=== PATIENT | female | born 1995 ===

== ENCOUNTER 2022-09-11 20:10 | Inpatient (IN) | payer OTHER ==
[2022-09-11] MEDS: DEXTROSE 5%-LACTATED RINGERS 1,000 ML IV SCH (21:00)
[2022-09-11] MEDS ORDERED: DINOPROSTONE 10 MG VAGINAL SUPPOSITORY VG ONE (21:00)
[2022-09-11 21:36] LABS: BASO % 0.4 % (0-2.0); HEMATOCRIT 33.7 % (32.4-45.2); HEMOGLOBIN 11.1 GM/dL (10.7-15.3); LYMPH % 32.3 % (8-40); MCH 28.6 pg (25.7-33.7); MCHC 33.1 g/dl (32.0-36.0); MEAN CELL VOLUME 86.4 fl (80-96); MEAN PLT VOLUME 8.3 fl (7.5-11.1); MONO % 8.4 % (3.8-10.2); NEUT % 57.9 % (42.8-82.8); PLATELET COUNT 255 10^3/uL (134-434); RDW 18.4 % (11.6-15.6); WHITE BLOOD COUNT 6.8 K/mm3 (4.0-10.0)
[2022-09-11 21:44] LABS: INR 0.99 (0.83-1.09); PROTHROMBIN TIME (PATIENT) 11.4 SEC (9.7-13.0)
[2022-09-11 21:47] LABS: ACTIVATED PTT 27.7 SECONDS (25.2-36.5)
[2022-09-11 21:56] LABS: CALCIUM 8.7 mg/dL (8.5-10.1)
[2022-09-11 21:57] LABS: ALBUMIN 2.7 g/dl (3.4-5.0)
[2022-09-11 21:59] LABS: CREATININE 0.7 mg/dL (0.55-1.3)
[2022-09-11 22:01] LABS: TOT PROT 6.2 g/dl (6.4-8.2)
[2022-09-11 22:02] LABS: BILIRUBIN,TOTAL 0.3 mg/dL (0.2-1)
[2022-09-11 22:22] LABS: SYPHILIS W/ RPR CONF NON-REACTIVE (NONREACTIVE)
[2022-09-11 22:51] LABS: HIV INTERPRETATION NEGATIVE (NEGATIVE)
[2022-09-11 23:05] VITALS: BMI 26.8
[2022-09-12] MEDS ORDERED: PROMETHAZINE HCL 25 MG/1 ML VIAL IVPUSH ONE (01:00)
[2022-09-12] MEDS ORDERED: BUTORPHANOL TARTRATE 2 MG/ML VIAL IVPB ONE (01:00)
[2022-09-12] MEDS: DEXTROSE 5%-LACTATED RINGERS 1,000 ML IV SCH ×2 (01:00→08:15)
[2022-09-12] MEDS: MUPIROCIN 2% TOPICAL OINTMENT 22 GM TUBE TP SCH ×2 (06:00→16:00)
[2022-09-12] MEDS ORDERED: OXYTOCIN 30 UNITS in 0.9% NS 30 UNIT/500 ML INFUS.BAG IVPB SCH (07:30)
[2022-09-12] MEDS ORDERED: BUTORPHANOL TARTRATE 2 MG/ML VIAL ONE (09:00)
[2022-09-12] MEDS ORDERED: PROMETHAZINE HCL 25 MG/1 ML VIAL ONE (09:00)
[2022-09-12] MEDS ORDERED: FENTANYL/BUPIVACAINE/NS/PF - PCEA - 50 ML DISP.SYRIN EP ONE ×2 (13:59→18:21)
[2022-09-12] MEDS: FENTANYL/BUPIVACAINE/NS/PF - PCEA - 50 ML DISP.SYRIN EP SCH (14:15)
[2022-09-12] MEDS ORDERED: ELECTROLYTE-148 SOLN 1,000 ML IV SCH (15:00)
[2022-09-12] MEDS ORDERED: OXYTOCIN 30 UNITS in 0.9% NS 30 UNIT/500 ML INFUS.BAG IVPB ONE (15:31)
[2022-09-12] MEDS ORDERED: NALOXONE HCL 0.4 MG/ML VIAL IVPUSH PRN (17:22)
[2022-09-12] MEDS ORDERED: OXYTOCIN 20 UNITS in 0.9% NS 20 UNIT/1,000 ML INFUS.BAG IV ONE (21:56)
[2022-09-12] MEDS ORDERED: BISACODYL 10 MG SUPP.RECT RC PRN (23:12)
[2022-09-12] MEDS ORDERED: oxyCODONE HCL 5 MG TABLET PO PRN (23:12)
[2022-09-12] MEDS ORDERED: BENZOCAINE 20% 57 GM BOTTLE TP PRN (23:12)
[2022-09-12] MEDS ORDERED: BENZOCAINE 28 GM HEMORRHOIDAL OINTMENT TP PRN (23:12)
[2022-09-12] MEDS ORDERED: METHYLERGONOVINE MALEATE 0.2 MG/1 ML AMP IM PRN (23:12)
[2022-09-12] MEDS ORDERED: IBUPROFEN 600 MG TABLET (FP) PO PRN (23:12)
[2022-09-12] MEDS ORDERED: WITCH HAZEL 50% (TUCKS) 40 PAD/JAR PAD TP PRN (23:12)
[2022-09-12] MEDS ORDERED: OXYTOCIN 20 UNITS in 0.9% NS 20 UNIT/1,000 ML INFUS.BAG IV SCH (23:15)
[2022-09-13] MEDS: MUPIROCIN 2% TOPICAL OINTMENT 22 GM TUBE TP SCH ×4 (01:30→22:26)
[2022-09-13] MEDS: ACETAMINOPHEN 325 MG TABLET (FP) PO PRN ×2 (01:30→04:38)
[2022-09-13 08:56] LABS: BASO % 0.3 % (0-2.0); EOS % 0.6 % (0-4.5); HEMATOCRIT 28.4 % (32.4-45.2); HEMOGLOBIN 9.1 GM/dL (10.7-15.3); LYMPH % 23.5 % (8-40); MCH 27.7 pg (25.7-33.7); MCHC 32.2 g/dl (32.0-36.0); MEAN CELL VOLUME 85.9 fl (80-96); MEAN PLT VOLUME 8.1 fl (7.5-11.1); MONO % 8.6 % (3.8-10.2); PLATELET COUNT 229 10^3/uL (134-434); RDW 18.4 % (11.6-15.6); WHITE BLOOD COUNT 8.4 K/mm3 (4.0-10.0)
[2022-09-13] MEDS ORDERED: DIPHTH,PERTUSS(ACELL),TET 0.5 ML DISP.SYRIN IM ONE (10:00)
[2022-09-13] MEDS: PRENATAL VITAMINS W/ FOLIC ACID TABLET (FP) PO SCH (10:13)
[2022-09-13] MEDS ORDERED: FLU VACC QS2022-23(6MOS UP)/PF 60 MCG/0.5 ML SYRINGE IM ONE (14:00)
[2022-09-13] MEDS ORDERED: SENNOSIDES/DOCUSATE COMBO (SENNA PLUS) TABLET (UD) PO PRN (22:00)
[2022-09-14 00:24] VITALS: RESP 16
[2022-09-14] MEDS: MUPIROCIN 2% TOPICAL OINTMENT 22 GM TUBE TP SCH (06:01)
[2022-09-14 08:23] VITALS: BP 100/55; PULSE 80; TEMP 98
[2022-09-14] MEDS: PRENATAL VITAMINS W/ FOLIC ACID TABLET (FP) PO SCH (09:28)
== END 2022-09-14 13:00 | disposition home or self-care (01) | DRG 560 ==
LOC: JLDR 20:10 → J3W 09-13 01:15
PROVIDERS: ADMIT Obstetrics & Gynecology; ATTEND Obstetrics & Gynecology
PROC: 3E0P7VZ Introduction of Hormone into Female Reproductive, Via Natural or Artificial Opening (ICD-10-PCS; 2022-09-11)
PROC: 0HQ9XZZ Repair Perineum Skin, External Approach (ICD-10-PCS; principal; 2022-09-12)
PROC: 10E0XZZ Delivery of Products of Conception, External Approach (ICD-10-PCS; 2022-09-12)
DX: O48.0 Post-term pregnancy (principal); O70.0 First degree perineal laceration during delivery; Z3A.40 40 weeks gestation of pregnancy; Z37.0 Single live birth
CPT/HCPCS: 36415; 59409; 80053; 85025; 85610; 85730; 86780; 86850; 86900; 86901; 87389; 90715; C9803-CS; G0008; Q2036; U0003; U0005

== ENCOUNTER 2024-09-04 14:22 | Inpatient (IN) | payer OTHER ==
[2024-09-04] MEDS: ELECTROLYTE-148 SOLN 1,000 ML IV SCH (15:00)
[2024-09-04 15:03] LABS: BASO % 0.8 % (0-2.0); EOS % 0.7 % (0-4.5); HEMATOCRIT 29.5 % (32.4-45.2); HEMOGLOBIN 9.7 GM/dL (10.7-15.3); LYMPH % 28.7 % (8-40); MCH 27.2 pg (25.7-33.7); MCHC 32.8 g/dl (32.0-36.0); MEAN CELL VOLUME 82.9 fl (80-96); MEAN PLT VOLUME 7.6 fl (7.5-11.1); MONO % 8.1 % (3.8-10.2); NEUT % 61.7 % (42.8-82.8); PLATELET COUNT 258 10^3/uL (134-434); RBC 3.56 M/mm3 (3.60-5.2); RDW 17.6 % (11.6-15.6)
[2024-09-04 15:06] VITALS: BMI 27.1
[2024-09-04 15:08] LABS: INR 0.95 (0.83-1.09); PROTHROMBIN TIME (PATIENT) 10.9 SEC (9.7-13.0)
[2024-09-04 15:11] LABS: ACTIVATED PTT 30.2 SECONDS (25.2-36.5)
[2024-09-04] MEDS ORDERED: OXYTOCIN 30 UNITS in 0.9% NS 30 UNIT/500 ML INFUS.BAG IVPB ONE (15:14)
[2024-09-04] MEDS: OXYTOCIN 30 UNITS in 0.9% NS 30 UNIT/500 ML INFUS.BAG IVPB SCH (15:20)
[2024-09-04 15:28] LABS: POTASSIUM 3.9 mmol/L (3.5-5.1)
[2024-09-04 15:31] LABS: CALCIUM 8.8 mg/dL (8.5-10.1)
[2024-09-04 15:32] LABS: BLOOD UREA NITROGEN 6.2 mg/dL (7-18)
[2024-09-04 15:35] LABS: CREATININE 0.6 mg/dL (0.55-1.3)
[2024-09-04] MEDS ORDERED: FENTANYL/BUPIVACAINE/NS/PF - PCEA - 50 ML DISP.SYRIN EP ONE (20:03)
[2024-09-04] MEDS: FENTANYL/BUPIVACAINE/NS/PF - PCEA - 50 ML DISP.SYRIN EP SCH (20:24)
[2024-09-04 22:00] LABS: SYPHILIS W/ RPR CONF NON-REACTIVE (NONREACTIVE)
[2024-09-04] MEDS ORDERED: OXYTOCIN 20 UNITS in 0.9% NS 20 UNIT/1,000 ML INFUS.BAG IV ONE (22:00)
[2024-09-04 22:01] LABS: HIV INTERPRETATION NEGATIVE (NEGATIVE)
[2024-09-04] MEDS ORDERED: BISACODYL 10 MG SUPP.RECT RC PRN (23:22)
[2024-09-04] MEDS ORDERED: METHYLERGONOVINE MALEATE 0.2 MG/1 ML AMP IM PRN (23:22)
[2024-09-04] MEDS ORDERED: oxyCODONE HCL 5 MG TABLET PO PRN (23:22)
[2024-09-04] MEDS ORDERED: WITCH HAZEL 50% (TUCKS) 40 PAD/JAR PAD TP PRN (23:22)
[2024-09-04] MEDS ORDERED: BENZOCAINE 28 GM HEMORRHOIDAL OINTMENT TP PRN (23:22)
[2024-09-04] MEDS ORDERED: BENZOCAINE 20% 57 GM BOTTLE TP PRN (23:22)
[2024-09-05 02:11] VITALS: RESP 18
[2024-09-05] MEDS: IBUPROFEN 600 MG TABLET (FP) PO PRN (04:23)
[2024-09-05] MEDS: ACETAMINOPHEN 325 MG TABLET (FP) PO PRN (06:22)
[2024-09-05] MEDS: OXYTOCIN 20 UNITS in 0.9% NS 20 UNIT/1,000 ML INFUS.BAG IV SCH (07:09)
[2024-09-05 07:21] LABS: BASO % 0.6 % (0-2.0); EOS % 0.4 % (0-4.5); HEMATOCRIT 27.6 % (32.4-45.2); HEMOGLOBIN 9.1 GM/dL (10.7-15.3); LYMPH % 21.7 % (8-40); MCH 27.2 pg (25.7-33.7); MCHC 32.9 g/dl (32.0-36.0); MEAN CELL VOLUME 82.8 fl (80-96); MEAN PLT VOLUME 7.8 fl (7.5-11.1); MONO % 8.4 % (3.8-10.2); NEUT % 68.9 % (42.8-82.8); PLATELET COUNT 231 10^3/uL (134-434); RBC 3.34 M/mm3 (3.60-5.2); RDW 17.8 % (11.6-15.6); WHITE BLOOD COUNT 8.2 K/mm3 (4.0-10.0)
[2024-09-05] MEDS: DIPHTH,PERTUSS(ACELL),TET 0.5 ML DISP.SYRIN IM ONE (09:16)
[2024-09-05] MEDS: PRENATAL VITAMINS W/ FOLIC ACID TABLET (FP) PO SCH (09:17)
[2024-09-05] MEDS: FERROUS SO4 325 MG TABLET (FP) PO SCH (09:17)
[2024-09-05] MEDS ORDERED: SENNOSIDES/DOCUSATE COMBO (SENNA PLUS) TABLET (UD) PO PRN (22:00)
[2024-09-06 08:55] VITALS: BP 104/59; PULSE 77; TEMP 98
== END 2024-09-06 17:15 | disposition home or self-care (01) | DRG 560 ==
LOC: JLDR 14:22 → J3W 09-05 01:50
PROVIDERS: ADMIT Obstetrics & Gynecology; ATTEND Obstetrics & Gynecology
PROC: 10E0XZZ Delivery of Products of Conception, External Approach (ICD-10-PCS; principal; 2024-09-04)
DX: O80 Encounter for full-term uncomplicated delivery (principal); Z3A.40 40 weeks gestation of pregnancy; Z37.0 Single live birth
CPT/HCPCS: 36415; 59025; 59409; 76801-TC; 80048; 83986-QW; 85025; 85610; 85730; 86780; 86803; 86850; 86900; 86901; 87389; 90715